=== PATIENT | male | born 1965 | race Caucasian/White ===

== ENCOUNTER 2017-11-23 12:10 | Day surgery (SDC) | payer OTHER ==
[~2017-11-23] VITALS: Ht 180.3 cm; Wt 96.6 kg
[2017-11-23] MEDS ORDERED: CLARINEX-D 121 EACH PO (12:23)
--- NOTE | 2017-11-23 13:55 | NUR ---
11/23/17 1355 Noe Santiago REPOSITIONED PT IN BED AND GAVE SIPS OF WATER WITHOUT PROBLEMS AT 1340. AT BEDSIDE AT 1350. CONTINUES TO DENY NAUSEA OR PAIN. REVIEWED DISCHARGE INSTRUCTIONS WITH PT AND SPOUSE AT BEDSIDE.
--- NOTE | 2017-11-24 12:56 | OR ---
[facility] [address] [place], [place] [address] Signed DATE OF OPERATION: 11/23/2017 SURGEON: Magdi Barnard MD PREOPERATIVE DIAGNOSIS: Colon screening. POSTOPERATIVE DIAGNOSIS: Normal colon to cecum. PROCEDURE: Total colonoscopy to cecum. ANESTHESIA: Intravenous sedation with fentanyl 100 mcg, Versed 4 mg. INDICATION: This 52-year-old white man is a patient of Dr. Fan Benjamin and is in very good health overall. He has been recommended for colon screening based on his age. He has no problems of bleeding, diarrhea, or constipation. Has no known family history of colon cancer. He understands the risks of colonoscopy including, but not limited to bleeding, infection, and perforation and wished to proceed. FINDINGS: The prep was excellent. Complete colonoscopy was undertaken to the cecum. There was no evidence of polyps, diverticular formation, colitis, or cancer. PROCEDURE: The patient was brought to the endoscopy suite and placed in lateral decubitus position, given intravenous sedation to the point of slurred speech and nystagmus. Digital rectal examination was normal. An Olympus video colonoscope was passed in the rectum and manipulated throughout the colon ultimately intubating the cecum itself. The ileocecal valve and appendiceal orifice were normal. The scope was withdrawn from that point and examination throughout showed no sign of abnormality, specifically no polyps, diverticular formation, colitis, or cancer. Retroflex view was normal as well. Scope was removed. The patient was taken to recovery room in good condition. CONCLUSION DIAGNOSIS: Electronically Signed By: MAGDI BARNARD MD 11/24/17 1256 PATIENT NAME: RINA SHAHID OPERATIVE REPORT DATE OF : 63 REPORT #: [id number] PHYSICIAN: MAGDI BARNARD MD PCP: FAN BENJAMIN DO REPORT IS CONFIDENTIAL AND NOT TO BE RELEASED WITHOUT AUTHORIZATION [place] [id number] [facility] [place], [place] [address] Signed Normal colon. PLAN: Recommend repeat colonoscopy in 10 years, sooner if clinically indicated. He will return to the ongoing care of Dr. Fan Benjamin. MD SPENSER Manzanares/MODL /[id number] cc: Fan Benjamin DO Copies: FAN BENJAMIN DO ~ Electronically Signed By: MAGDI BARNARD MD 11/24/17 1256 PATIENT NAME: RINA SHAHID OPERATIVE REPORT DATE OF : 63 REPORT #: [id number] PHYSICIAN: MAGDI BARNARD MD PCP: FAN BENJAMIN DO REPORT IS CONFIDENTIAL AND NOT TO BE RELEASED WITHOUT AUTHORIZATION
== END 2017-11-23 14:00 | disposition home or self-care (01) ==
LOC: OPS 12:10 → DS 12:10 → OPS 13:00 → DS 13:00 → OPS 14:00
PROVIDERS: Surgery
PROC: 0DJD8ZZ Inspection of Lower Intestinal Tract, Via Natural or Artificial Opening Endoscopic (ICD-10-PCS; principal; 2017-11-23 13:00)
DX: Z12.11 Encounter for screening for malignant neoplasm of colon (principal)
CPT/HCPCS: 99153; G0500; J2250; J3010; J7120

== ENCOUNTER 2024-12-07 15:51 | Emergency (ER) | payer OTHER ==
[~2024-12-07] VITALS: Ht 180.3 cm; Wt 104.7 kg
[~2024-12-07 15:51] MED LIST: CLARINEX-D 121 EACH PO
[2024-12-07 16:10] LABS: BASOPHILS 0.8 % (0.2-1.2); EOSINOPHILS 2.6 % (0.8-7.0); HEMOGLOBIN 15.1 g/dL (13.7-17.5); LYMPHOCYTES 22.6 % (21.8-53.1); MCH 30.2 PG (25.7-32.2); MCHC 32.8 g/dL (32.3-36.5); MONOCYTES 7.3 % (5.3-12.2); NEUTROPHILS 66.4 % (34.0-67.9); PLATELET COUNT 226 K/uL (163-337)
[2024-12-07 16:23] LABS: ALBUMIN 4.4 g/dL (3.4-5.0); ALBUMIN/GLOBULIN RATIO 1.47 (1.1-2.4); BILIRUBIN, TOTAL 0.7 mg/dL (0.2-1.0); BUN/CREATININE RATIO 33.62 (6.0-28.6); CALCIUM 9.5 mg/dL (8.5-10.1); CREATININE, SERUM 1.13 mg/dL (0.70-1.30); PROTEIN, TOTAL 7.4 g/dL (6.4-8.2)
[2024-12-07] MEDS ORDERED: ondansetron HCL 4 MG/2 ML VIAL IV ONE (16:45)
[2024-12-07] MEDS ORDERED: KETOROLAC TROMETHAMINE 15 MG/ML VIAL IV ONE (16:45)
[2024-12-07 18:08] LABS: BILIRUBIN, URINE NEGATIVE (negative); BLOOD/HGB, URINE NEGATIVE (Negative); KETONE, URINE SMALL (Negative); LEUK ESTERASE, URINE NEGATIVE (negative); NITRITE, URINE NEGATIVE (negative)
[2024-12-07 19:15] VITALS: BP 129/85
--- NOTE | 2024-12-08 08:27 | EKG ---
[facility] [address] [facility] [place], [place] [address] Signed Normal sinus rhythm Normal ECG No previous ECGs available Confirmed by Clarke Shah MD ([id number]) on 12/08/2024 8:27:18 AM Electronically Signed By: CLARKE SHAH MD 12/08/24 0827 PATIENT NAME: RINA SHAHID Electrocardiogram DATE OF : 63 PHYSICIAN: CLARKE SHAH MD REPORT #: [id number] REPORT IS CONFIDENTIAL AND NOT TO BE RELEASED WITHOUT AUTHORIZATION
== END 2024-12-07 19:15 | disposition home or self-care (01) ==
LOC: ED 15:51
PROVIDERS: Emergency Medicine
DX: R10.11 Right upper quadrant pain (principal); Z79.899 Other long term (current) drug therapy; Z88.5 Allergy status to narcotic agent
CPT/HCPCS: 36415; 74177; 76705; 80053; 81003; 83690; 85025; 93005; 93010; 96375; 99284-25; J1885; J2405; Q9967